=== PATIENT | female | born 1965 | race Caucasian/White ===

== ENCOUNTER 2019-12-26 11:18 | Emergency (ER) | payer OTHER ==
[2019-12-26 11:40] VITALS: BP 122/73; PULSE 91; RESP 18; TEMP 98.2
[2019-12-26] MEDS ORDERED: ACET/COD 300 MG/30 MG STARTER PACK 6 TAB BTL PO STA (11:49)
--- NOTE | 2019-12-26 11:52 | ED ---
General Adult HPI - General Chief complaint: ENT Stated complaint: bilat ear pain Time Seen by Provider: 12/26/19 11:42 Source: patient, RN notes reviewed Mode of arrival: ambulatory Limitations: no limitations - History of Present Illness Initial comments: Patient is a pleasant 54-year-old female presenting to the emergency Department with complaints of left greater than right ear discomfort for the past several days. Patient also has sinus congestion and sore throat. Patient does have history of previous ear infections with similar problems. Discomfort is moderate to severe. Patient is slight decreased hearing on the left. Patient appears to be hearing well during evaluation. No fevers. - Related Data Previous Rx's Medication Instructions Recorded Azithromycin [Zithromax Z-pack] 250 mg PO DIRECTED #6 tab 12/26/19 Allergies Allergy/AdvReac Type Severity Reaction Status Date / Time Penicillins Allergy Unknown Verified 12/26/19 11:36 vancomycin Allergy Unknown Verified 12/26/19 11:36 Review of Systems ROS Statement: Those systems with pertinent positive or pertinent negative responses have been documented in the HPI. ROS Other: All systems not noted in ROS Statement are negative. 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 Tenderness over the maxillary and ethmoid sinuses. Mild pharyngeal erythema.) Neck exam: Present: lymphadenopathy (Anterior cervical). Absent: meningismus Respiratory exam: Present: normal lung sounds bilaterally Cardiovascular Exam: Present: regular rate, normal rhythm GI/Abdominal exam: Present: soft. Absent: tenderness Extremities exam: Present: normal inspection Neurological exam: Present: alert Psychiatric exam: Present: normal affect, normal mood Skin exam: Present: other (Old well-healed skin lesions) Course Vital Signs 12/26/19 11:37 Temperature 98.2 F Pulse Rate 91 Respiratory 18 Rate Blood Pressure 122/73 O2 Sat by Pulse 95 Oximetry Disposition Clinical Impression: Otitis media Disposition: HOME SELF-CARE Condition: Stable Instructions (If sedation given, give patient instructions): Ear Infection (ED), Sinusitis (ED) Additional Instructions: Please follow-up with primary care physician in the next couple days for recheck. [id number] Tylenol or Motrin as needed. Salt water gargle. Vitamin C. Saline nasal spray. Return for difficulty breathing, uncontrolled fevers, worsening symptoms or other concerns. Prescription has been sent to your pharmacy. Prescriptions: Azithromycin [Zithromax Z-pack] 250 mg PO DIRECTED #6 tab Is patient prescribed a controlled substance at d/c from ED?: No Referrals: Geronimo Matos MD [STAFF PHYSICIAN] - 1-2 days Time of Disposition: 11:52
== END 2019-12-26 12:10 | disposition home or self-care (01) ==
LOC: EC 11:18
DX: H66.90 Otitis media, unspecified, unspecified ear (principal); Z88.0 Allergy status to penicillin; Z88.1 Allergy status to other antibiotic agents; Z96.698 Presence of other orthopedic joint implants
CPT/HCPCS: 99282

== ENCOUNTER 2020-01-03 17:08 | Emergency (ER) | payer OTHER ==
[2020-01-03 17:29] VITALS: BP 107/59; PULSE 94; RESP 18; TEMP 98.2
--- NOTE | 2020-01-03 17:40 | ED ---
ENT HPI - General Chief complaint: ENT Stated complaint: lt ear pain Time Seen by Provider: 01/03/20 17:31 Source: patient Mode of arrival: ambulatory Limitations: no limitations - History of Present Illness Initial comments: 54-year-old feel presents today for chief complaint of bilateral ear pain. Patient states she presented approximately 5-7 days ago to the emergency department for bilateral ear pain is diagnosed with an ear infection she states given her penicillin ALLERGY which she was prescribed azithromycin. Patient states the pain has been persistent. She states that she has decreased hearing in the ears bilaterally. She denies any drainage or swelling outside of the ear. Patient denies any fevers neck stiffness, cough or congestion. Denies tinnitus, dizziness. Denies swelling/pain behind ear. Patient has no additional complaints. Upon arrival she appears well nontoxic in no acute distress.afebrile. - Related Data Previous Rx's Medication Instructions Recorded Azithromycin [Zithromax Z-pack] 250 mg PO DIRECTED #6 tab 12/26/19 Cefpodoxime Proxetil [Vantin] 200 mg PO Q12HR 10 Days #20 tab 01/03/20 Loratadine [Claritin] 10 mg PO DAILY 5 Days #5 tab 01/03/20 Allergies Allergy/AdvReac Type Severity Reaction Status Date / Time Penicillins Allergy Unknown Verified 01/03/20 17:26 vancomycin Allergy Unknown Verified 01/03/20 17:26 Review of Systems ROS Statement: Those systems with pertinent positive or pertinent negative responses have been documented in the HPI. ROS Other: All systems not noted in ROS Statement are negative. 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 Eye: Pupils are equal, round and reactive to light, extra-ocular movements are intact. No nystagmus. There is normal conjunctiva bilaterally. No signs of icterus. Ears, nose, mouth and throat: There are moist mucous membranes and no oral lesions. Bulging erythematous tympanic membranes bilaterally. Tympanic membrane is intact. Extra Auditory canal within normal limits. No drainage. No pain to pulling of the auricle. There is no tenderness to palpation of the mastoid bilaterally no swelling or redness of the mastoids bilaterally. Neck: The neck is supple, there is no tenderness or JVD. Cardiovascular: There is a regular rate and rhythm. No murmur, rub or gallop is appreciated. Respiratory: Lungs are clear to auscultation, respirations are non-labored, breath sounds are equal. No wheezes, stridor, rales, or rhonchi. Musculoskeletal: Normal ROM, no tenderness. Strength 5/5. Sensation intact. Pulses equal bilaterally 2+. Neurological: A&O x 3. CN II-XII intact grossly, There are no obvious motor or sensory deficits. Coordination appears grossly intact. Speech is normal. Skin: Skin is warm and dry and no rashes or lesions are noted. Psychiatric: Cooperative, appropriate mood & affect, normal judgment. Limitations: no limitations Course Vital Signs 01/03/20 01/03/20 17:26 17:59 Temperature 98.2 F 98.2 F Pulse Rate 94 94 Respiratory 18 18 Rate Blood Pressure 107/59 107/59 O2 Sat by Pulse 95 95 Oximetry Medical Decision Making - Medical Decision Making physical examination are concerning for otitis media. Patient be placed on a cephalosporin which I feel will have better coverage than azithromycin. As patient has a penicillin ALLERGY and failed macrolide treatment. I discussed the case with him provider who would like to try claritin in additional to antibiotics. Patient is to f/u with ENT, return for worsening pain, fevers, swelling or pain behind the ear. Patient is agreeable and was discharged appearing well nontoxic in no acute distress. Disposition Clinical Impression: Bilateral otitis media Disposition: HOME SELF-CARE Condition: Good Instructions (If sedation given, give patient instructions): Ear Infection (ED) Additional Instructions: Please use medication as discussed. Please follow-up with ENT, take medications as directed. Please return to emergency room if the symptoms increase or worsen or for any other concerns. Prescriptions: Loratadine [Claritin] 10 mg PO DAILY 5 Days #5 tab Cefpodoxime Proxetil [Vantin] 200 mg PO Q12HR 10 Days #20 tab Is patient prescribed a controlled substance at d/c from ED?: No Referrals: None,Stated [Primary Care Provider] - 1-2 days Ranjit Frye MD [STAFF PHYSICIAN] - 1-2 days Time of Disposition: 17:37
== END 2020-01-03 18:00 | disposition home or self-care (01) ==
LOC: EC 17:08
DX: H66.93 Otitis media, unspecified, bilateral (principal); Z88.0 Allergy status to penicillin; Z88.1 Allergy status to other antibiotic agents
CPT/HCPCS: 99282